=== PATIENT | male | born 1990 | race Caucasian/White ===

== ENCOUNTER 2017-01-11 00:30 | Emergency (ER) | payer OTHER ==
[~2017-01-11] VITALS: Ht 170.2 cm; Wt 74.0 kg
[2017-01-11 00:33] VITALS: BP 150/97
[2017-01-11] MEDS ORDERED: NALOXONE 0.4 MG/ML, 1ML ONE (00:54)
[2017-01-11] MEDS ORDERED: NALOXONE 0.4 MG/ML, 1ML IVPush ONE (01:00)
[2017-01-11 01:03] LABS: HEMATOCRIT 51.8 % (39.2-51.8); HEMOGLOBIN 17.5 g/dL (13.7-18.0); WHITE BLOOD COUNT 12.3 x10^3/uL (3.4-10)
[2017-01-11 01:15] LABS: ASPARTATE AMINO TRANSFERASE 28 U/L (15-37); BLOOD UREA NITROGEN 10 mg/dL (7-18)
[2017-01-11 01:18] LABS: ACETAMINOPHEN < 2 mcg/mL (10-30)
== END 2017-01-11 01:32 | disposition left against medical advice (07) ==
LOC: ED 01:26
DX: T40.601A Poisoning by unspecified narcotics, accidental (unintentional), initial encounter (principal); J96.91 Respiratory failure, unspecified with hypoxia; F10.129 Alcohol abuse with intoxication, unspecified; G40.909 Epilepsy, unspecified, not intractable, without status epilepticus; F11.10 Opioid abuse, uncomplicated; I10 Essential (primary) hypertension; Y92.89 Other specified places as the place of occurrence of the external cause; Y92.481 Parking lot as the place of occurrence of the external cause
CPT/HCPCS: 36415; 71010; 80053; 80307; 80329; 85025; 93005; 96374; 99291; J2310; G0479; G0480